=== PATIENT | female | born 1960 | race Caucasian/White ===

== ENCOUNTER 2021-11-06 11:47 | Outpatient (CLI) | payer OTHER | END 2021-11-06 11:55 | disposition home or self-care (01) | LOC: SONOGRAMA 11:47 | PROVIDERS: ATTEND Pathology Anatomic Pathology & Clinical Pathology | DX: C73 Malignant neoplasm of thyroid gland (principal) ==

== ENCOUNTER 2021-12-17 06:48 | Day surgery (SDC) | payer OTHER ==
[~2021-12-17] VITALS: Ht 157.5 cm; Wt 84.8 kg
[~2021-12-17 06:48] MED LIST: AZELASTINE HCL6 ML OPHT; COZAAR25 MG PO; GABAPENTIN300 M2 PO; LEVOTHYROXINE25 MCG PO; PEPCID AC20 MG PO; PROTONIX40 MG PO; QNASL10.6 GM NASAL; SYMBICORT 16010.2 GM IH; XOPENEX HFA15 GM IH
[2021-12-17] MEDS ORDERED: PERCOCET 5-3251 EACH PO (10:56)
== END 2021-12-17 14:45 | disposition home or self-care (01) ==
LOC: CIR.AMB 06:48
PROVIDERS: ATTEND Surgery
DX: C73 Malignant neoplasm of thyroid gland (principal); Z20.822 Contact with and (suspected) exposure to COVID-19; Z88.6 Allergy status to analgesic agent; Z88.8 Allergy status to other drugs, medicaments and biological substances; I10 Essential (primary) hypertension; J45.909 Unspecified asthma, uncomplicated; Z99.89 Dependence on other enabling machines and devices; G47.33 Obstructive sleep apnea (adult) (pediatric); E11.9 Type 2 diabetes mellitus without complications; E03.9 Hypothyroidism, unspecified